=== PATIENT | female | born 1960 | race Caucasian/White ===

== ENCOUNTER 2020-05-28 06:30 | Day surgery (SDC) | payer MEDICAID ==
[2020-05-28] MEDS ORDERED: Sodium Chloride 0.9% 1,000 ML IV SCH (07:00)
[2020-05-28] MEDS ORDERED: Midazolam 1 MG/ML 2 ML SDV ONE (07:26)
[2020-05-28] MEDS ORDERED: fentaNYL 100 MCG/2 ML SDV ONE (07:26)
[2020-05-28] MEDS ORDERED: Propofol 200 MG/20 ML SDV ONE (07:26)
[2020-05-28 09:05] VITALS: BP 117/64; PULSE 81
--- NOTE | 2020-05-28 10:54 | OR ---
DATE OF PROCEDURE: 05/28/2020 SURGEON: Farhan Devries MD PROCEDURE: Colonoscopy. FINDINGS: Normal colonoscopy. COMPLICATIONS: None. SUPERVISOR SHUTTLE VENEERING: None. ANESTHESIA: MAC. PREOPERATIVE DIAGNOSIS: Screening colonoscopy. POSTOPERATIVE DIAGNOSIS: Screening colonoscopy. RISKS: Risks, benefits, alternatives, and limitations including, but not limited to infection, bleeding, and perforation were explained to the patient who wished to proceed. PROCEDURE IN DETAIL: The patient was placed in left lateral decubitus position. Digital rectal exam was performed without abnormality. Scope was introduced and advanced atraumatically through the ileocecal valve. A photo was taken of this. Scope was brought back through the ascending, transverse, descending colon, and retroflexed. No evidence of old or new blood. No masses. No polyps. No diverticulosis. The prep was acceptable with approximately 95% of the luminal surface could be seen. No abnormalities on retroflexion. No colitis. Greater than 10 minutes was spent in removing the scope. The patient tolerated the procedure well. Farhan Devries MD /[id number]
== END 2020-05-28 09:15 | disposition home or self-care (01) ==
LOC: JP.SDS 06:30
PROVIDERS: ATTEND Surgery
DX: Z12.11 Encounter for screening for malignant neoplasm of colon (principal); I10 Essential (primary) hypertension
CPT/HCPCS: J2250; J2704; J3010; J7030